=== PATIENT | female | born 1965 | race Caucasian/White ===

== ENCOUNTER 2017-07-01 12:10 | Emergency (ER) | payer OTHER ==
[~2017-07-01] VITALS: Ht 170.2 cm; Wt 73.0 kg
[~2017-07-01 12:10] MED LIST: ECOT81TA2 PO; HYDR50 PO; LIPI10TA PO; LISI-363 PO; NORV10TA PO; OXYC15TA PO
[2017-07-01 12:17] VITALS: BP 185/110; PULSE 72; RESP 16; TEMP 98.7; O2SAT 98
[2017-07-01] MEDS ORDERED: LISI-515 PO (13:03)
[2017-07-01] MEDS ORDERED: AMOX500C PO (13:03)
[2017-07-01] MEDS ORDERED: HYDR-3534 PO (13:03)
[2017-07-01 13:04] VITALS: BP 176/104; PULSE 76; RESP 18; O2SAT 96
--- NOTE | 2017-07-01 13:04 | PD ---
HPI Chief Complaint: Headache Time Seen by Provider: 12:35 Travel History International Travel<30 days: No Contact w/Intl Traveler<30days: No Traveled to known affect area: No History of Present Illness HPI This 51-year-old female has multiple complaints. She has a history of hypertension and has not been taking any medication for some time. She has had some congestion and is complaining of headache. She has a headache in both maxillary sinuses and also going around the back of the neck. There is been no vomiting. She has no numbness or tingling. She has a history of multiple injuries in the past and has been going to pain management and has not been able to go recently [facility] Past Medical History Anxiety: Yes Diminished Hearing: No Hypertension: Yes Musculoskeletal: Yes (chronic back and neck pain) Immunizations Current: Yes Tetanus Vaccination: < 5 Years Influenza Vaccination: No ?: Not Menopausal: Yes Past Surgical History Appendectomy: Yes Section: Yes (x1) Gynecologic Surgery: Yes () Social History Alcohol Use: Yes (occas. wine) Tobacco Use: Yes (1 PPD) Substance Use: No Allergies-Medications (Allergen,Severity, Reaction): Coded Allergies: Sulfa (Sulfonamide Antibiotics) (Unverified Allergy, Severe, Itching, SOB , 07/01/17) RASH, NAUSEA, DIZZINESS, HEADACHE sulfamethoxazole (Unverified Allergy, Severe, Itching, SOB, 07/01/17) trimethoprim (Unverified Allergy, Severe, Itching, SOB, 07/01/17) Reported Meds & Prescriptions Reported Meds & Active Scripts Active No Active Prescriptions or Reported Medications Review of Systems General / Constitutional: No: Fever, Chills Eyes: No: Diploplia HENT: Positive: Headaches, Rhinitis, No: Sore Throat Cardiovascular: No: Chest Pain or Discomfort, Palpitations Gastrointestinal: No: Nausea, Vomiting Genitourinary: No: Urgency, Frequency Musculoskeletal: No: Myalgias Skin: No Rash Neurologic: No: Weakness Hematologic/Lymphatic: No: Easy Bruising Physical Exam Narrative GENERAL: Well-developed female SKIN: Focused skin assessment warm/dry. HEAD: Atraumatic. Normocephalic. EYES: Pupils equal and round. No scleral icterus. No injection or drainage. ENT: No nasal bleeding . Mucous membranes pink and moist. There is congestion of the nasal mucosa. There is tenderness over both maxillary sinuses NECK: Trachea midline. No JVD. CARDIOVASCULAR: Regular rate and rhythm. No murmur appreciated. RESPIRATORY: No accessory muscle use. Clear to auscultation. Breath sounds equal bilaterally. GASTROINTESTINAL: Abdomen soft, non-tender, nondistended. Hepatic and splenic margins not palpable. MUSCULOSKELETAL: No obvious deformities. No clubbing. No cyanosis. No edema. NEUROLOGICAL: Awake and alert. No obvious cranial nerve deficits. Motor grossly within normal limits. Normal speech. PSYCHIATRIC: Appropriate mood and affect; insight and judgment normal. Data Data Last Documented VS Vital Signs Date Time Temp Pulse Resp B/P (MAP) Pulse Ox O2 Delivery O2 Flow Rate FiO2 07/01/17 12:37 98 Room Air 07/01/17 12:17 98.7 72 16 185/110 (135) MDM Medical Decision Making Medical Screen Exam Complete: Yes Emergency Medical Condition: Yes Medical Record Reviewed: Yes Differential Diagnosis Differential includes sinusitis, hypertension, headache Narrative Course Patient is neurologically intact. She'll be treated with lisinopril, amoxicillin and Lortab Diagnosis Primary Impression: Sinusitis Qualified Codes: J32.0 - Chronic maxillary sinusitis Additional Impression: Hypertension Scripts Hydrocodone-Acetaminophen (Lortab) 7.5-325 Mg Tab 1 TAB PO Q4H Y for PAIN, #20 TAB 0 Refills Prov: Salvador Elliott MD 07/01/17 Amoxicillin (Amoxicillin) 500 Mg Cap 500 MG PO TID for Infection for 10 Days, CAP 0 Refills Prov: Salvador Elliott MD 07/01/17 Lisinopril (Lisinopril) 20 Mg Tab 20 MG PO DAILY, #30 TAB 0 Refills Prov: Salvador Elliott MD 07/01/17 Disposition: 01 DISCHARGE HOME Condition: Stable Salvador Elliott MD Jul 01, 2017 13:04
== END 2017-07-01 13:15 | disposition home or self-care (01) ==
LOC: PHED 12:10
DX: J32.0 Chronic maxillary sinusitis (principal); I10 Essential (primary) hypertension; F17.200 Nicotine dependence, unspecified, uncomplicated
CPT/HCPCS: 99284